=== PATIENT | female | born 1995 | race Caucasian/White ===

== ENCOUNTER 2016-11-17 19:10 | Emergency (ER) | payer OTHER ==
[2016-11-17 21:45] VITALS: BP 114/74
--- NOTE | 2016-11-17 21:58 | EDM.PDOC ---
ED HPI GENERAL MEDICAL PROBLEM - General Chief Complaint: Allergic Reaction Stated Complaint: ALLERGIC REACTION Time Seen by Provider: 11/17/16 21:53 Source of Information: Reports: Patient History Limitations: Reports: No Limitations - History of Present Illness INITIAL COMMENTS - FREE TEXT/NARRATIVE: This 21 yo female patient reports to the ED after eating seafood and getting hives on her face, tingling in her throat and itching on her face. The patient did take Benadryl (50 mg) prior to coming to the ED. The patient reports he symptoms are resolved at the time of evaluation. Onset: Today, Sudden Duration: Resolved Prior to Arrival Location: Reports: Face Severity: Mild Improves with: Reports: None Worsens with: Reports: None Associated Symptoms: Reports: No Other Symptoms Treatments DROSS SKIMMER: Reports: Other (see below) Other Treatments DROSS SKIMMER: benadryl - Related Data Allergies Allergy/AdvReac Type Severity Reaction Status Date / Time No Known Allergies Allergy Verified 11/17/16 20:00 Home Meds: Home Meds . [No Known Home Meds] 11/17/16 [History] Past Medical History - Past Health History Medical/Surgical History: Denies Medical/Surgical History Cardiovascular History: Reports: Hypertension Social & Family History - Family History Family Medical History: Noncontributory - Tobacco Use Smoking Status *Q: Never Smoker - Recreational Drug Use Recreational Drug Use: No ED ROS ALLERGIC REACTION - Review of Systems Review Of Systems: ROS reveals no pertinent complaints other than HPI. ED EXAM GENERAL NO PERIP PULSE - Physical Exam Exam: See Below Exam Limited By: No Limitations General Appearance: Alert, WD/WN, No Apparent Distress Eye Exam: Bilateral Eye: EOMI, Normal Inspection, PERRL Ears: Normal External Exam, Normal Canal, Hearing Grossly Normal, Normal TMs Nose: Normal Inspection, Normal Mucosa, No Blood Throat/Mouth: Normal Inspection, Normal Lips, Normal Teeth, Normal Gums, Normal Oropharynx, Normal Voice, No Airway Compromise Head: Atraumatic, Normocephalic Neck: Normal Inspection, Supple, Non-Tender, Full Range of Motion Respiratory/Chest: No Respiratory Distress, Lungs Clear, Normal Breath Sounds, No Accessory Muscle Use, Chest Non-Tender Cardiovascular: Normal Peripheral Pulses, Regular Rate, Rhythm, No Edema, No Gallop, No JVD, No Murmur, No Rub GI/Abdominal: Normal Bowel Sounds, Soft, Non-Tender, No Organomegaly, No Distention, No Abnormal Bruit, No Mass (Female) Exam: Deferred Rectal (Female) Exam: Deferred Back Exam: Normal Inspection, Full Range of Motion, NT Extremities: Normal Inspection, Normal Range of Motion, Non-Tender, Normal Capillary Refill, No Pedal Edema Neurological: Alert, Oriented, CN II-XII Intact, Normal Cognition, Normal Gait, Normal Reflexes, No Motor/Sensory Deficits Psychiatric: Normal Affect, Normal Mood Skin Exam: Warm, Dry, Intact, Normal Color, No Rash Lymphatic: No Adenopathy Course - Vital Signs Last Recorded V/S: Last Vital Signs Temp 36.7 C 11/17/16 21:44 Pulse 51 L 11/17/16 21:44 Resp 20 11/17/16 21:44 BP 114/74 11/17/16 21:44 Pulse Ox 100 11/17/16 21:44 Departure - Departure Time of Disposition: 21:55 Disposition: Home, Self-Care 01 Condition: fair Clinical Impression: Allergic reaction to shellfish - Discharge Information Instructions: Food Allergy Forms: ED Department Discharge Care Plan Goals: The patient was advised of the examination results during the visit in the ED. Since the patient was feeling better after taking Benadryl, the patient was encouraged to continue to take Benadryl (50 mg) every 6 hours for the next 24 hours. The patient was also encouraged to take a 2nd Generation Antihistamine ( Zyrtec or Claritin) for the next 3-4 days. If the patient has any additional symptoms or further concerns, the patient should either follow-up with her primary care facility or return to the emergency department.
== END 2016-11-17 22:03 | disposition home or self-care (01) ==
LOC: DL.ED 19:10
DX: T78.1XXA Other adverse food reactions, not elsewhere classified, initial encounter (principal); L50.9 Urticaria, unspecified; I10 Essential (primary) hypertension; X58.XXXA Exposure to other specified factors, initial encounter
CPT/HCPCS: 99283